=== PATIENT | male | born 1965 | race Hispanic/Latino ===

== ENCOUNTER 2019-02-15 10:52 | Emergency (ER) | payer BC ==
[~2019-02-15] VITALS: Ht 170.2 cm; Wt 95.3 kg
--- NOTE | 2019-02-15 11:31 | NUR ---
PATIENT EVALUATED BY REMEDIOS Whitt AND DR. ELGGETT
[2019-02-15] MEDS ORDERED: ACETAMINOPHEN/CODEINE 300MG - 30MG TAB PO ONE (11:45)
[2019-02-15] MEDS ORDERED: CYCLOBENZAPRINE HCL 10 MG TAB PO ONE (11:45)
[2019-02-15] MEDS ORDERED: NAPROXEN 250 MG TAB PO SCH (11:45)
== END 2019-02-15 13:30 | disposition home or self-care (01) ==
LOC: ER 10:52
DX: S46.811A Strain of other muscles, fascia and tendons at shoulder and upper arm level, right arm, initial encounter (principal); X50.1XXA Overexertion from prolonged static or awkward postures, initial encounter; Y93.89 Activity, other specified; Y92.008 Other place in unspecified non-institutional (private) residence as the place of occurrence of the external cause
CPT/HCPCS: 99282

== ENCOUNTER 2021-04-04 13:32 | Emergency (ER) | payer BC ==
[~2021-04-04] VITALS: Ht 170.2 cm; Wt 104.3 kg
[2021-04-04] MEDS ORDERED: PENICILLIN G BENZATHINE LA 1.2 MU TBX IM STA (14:05)
[2021-04-04] MEDS ORDERED: PENICILLIN G BENZATHINE LA 1.2 MU TBX ONE (14:19)
== END 2021-04-04 14:42 | disposition home or self-care (01) ==
LOC: FSED 13:50
DX: J02.9 Acute pharyngitis, unspecified (principal)
CPT/HCPCS: 99283; J0561